=== PATIENT | male | born 1945 | race Caucasian/White ===

== ENCOUNTER 2023-03-20 11:43 | Day surgery (SDC) | payer OTHER ==
[2023-03-15 12:41] LABS: APTT 31 SECONDS (22-32); INR 1.3 INR
[2023-03-15 12:42] LABS: BASOPHILS % (AUTO) 0.5 % (0-1); EOSINOPHILS # (AUTO) 0.2 X10'3 (0-0.9); EOSINOPHILS % (AUTO) 3.3 % (0-6); LYMPHOCYTES # (AUTO) 1.4 X10'3 (1.1-4.8); LYMPHOCYTES % (AUTO) 31.1 % (21-51); MEAN CORPUSCULAR HEMOGLOBIN 36.5 PG (27.0-31.0); MEAN CORPUSCULAR HGB CONC 33.8 g/dL (33.0-36.5); MEAN CORPUSCULAR VOLUME 107.7 FL (78-98); MEAN PLATELET VOLUME 7.5 FL (7.4-10.4); MONOCYTES # (AUTO) 0.6 X10'3 (0-0.9); MONOCYTES % (AUTO) 13.7 % (2-12); NEUTROPHILS # (AUTO) 2.4 X10'3 (1.8-7.7); NEUTROPHILS % (AUTO) 51.4 % (42-75); PRE OP HEMATOCRIT 44.3 % (42.0-52.0); PRE OP PLATELET COUNT 155 X10'3 (140-440); PRE OP WHITE BLOOD COUNT 4.6 10'3 (4.8-10.8); RED BLOOD COUNT 4.11 X10'6 (4.70-6.10)
[2023-03-15 12:45] LABS: ALBUMIN 2.9 G/DL (3.4-5.0); ALKALINE PHOSPHATASE 126 IU/L (46-116); BLOOD UREA NITROGEN 6 MG/DL (7-18); BUN/CREATININE RATIO 7.7 (10.0-20.0); CALCIUM 8.6 MG/DL (8.5-10.1); CHLORIDE 105 MMOL/L (99-107); CREATININE 0.78 MG/DL (0.60-1.10); PRE OP ALT 30 U/L (30-65); PRE OP ANION GAP 10 (8-16); PRE OP AST 39 U/L (10-37); PRE OP GLUCOSE 113 MG/DL (70-104); PRE OP SODIUM 139 MMOL/L (135-145); TOTAL CARBON DIOXIDE 23.9 MMOL/L (24-32); eGFR > 90 ML/MIN
[2023-03-15 12:47] LABS: PRE OP POTASSIUM 3.2 MMOL/L (3.4-5.1)
[2023-03-15 12:50] LABS: ALBUMIN/GLOBULIN RATIO 0.5 (1.1-1.5); PRE OP BILIRUB, TOTAL 3.8 MG/DL (0.0-1.0); TOTAL PROTEIN 8.2 G/DL (6.4-8.2)
[~2023-03-20] VITALS: Ht 170.2 cm; Wt 61.0 kg
[2023-03-20] VITALS (10 sets, daily range): BP systolic 110–152; BP diastolic 62–78; PULSE 76–92; RESP 12–24; TEMP 97.6; O2SAT 95–98
[~2023-03-20 11:43] MED LIST: CHOL400T58 PO; LIVER AID PO; MULT-1085 PO; SUPER BETA PROSTATE PO; UBID100C16 PO; cefazolin 2gm/D5W 100mL 100 ML IV ONE; famotidine 20mg tablet PO ONE; ringers solution, lacted 1,000 ML IV SCH
[2023-03-20] MEDS ORDERED: LIDOcaine 1% W/epiNEPHrine 1:100,000 20ml vial ONE (13:29)
[2023-03-20] MEDS ORDERED: bacitracin 15gm ointment TP ONE (13:30)
[2023-03-20] MEDS ORDERED: midazolam 1 mg/ML 2ml injection ONE (13:44)
[2023-03-20] MEDS ORDERED: fentaNYL/PF 50MCG/1 ML 2ML syringe ONE (13:44)
[2023-03-20] MEDS ORDERED: BUPIVAcaine/PF 5 mg/ml 10ml ONE (14:31)
[2023-03-20] MEDS ORDERED: propofol inj 20 ML IV ONE ×2 (14:34)
[2023-03-20] MEDS ORDERED: morphine 2 MG/ML inj. syringe IV PRN (14:45)
[2023-03-20] MEDS ORDERED: ondansetron/PF 4mg/2ml inj IV PRN (14:45)
[2023-03-20] MEDS ORDERED: morphine 4 MG/ML inj SYRINge IV PRN (14:45)
[2023-03-20] MEDS ORDERED: meperidine/PF 25mg/ml syringe IV PRN ×3 (14:45)
[2023-03-20] MEDS ORDERED: ringers solution, lacted 1,000 ML IV SCH (14:45)
[2023-03-20] MEDS ORDERED: proCHLORperazine 10 MG/2 ml inj IV PRN (14:45)
--- NOTE | 2023-03-20 14:45 | NUR ---
PT ARRIVED TO [facility]IA [facility] ACCOMPANIED BY DR. HANKS- ANESTHESIA REPORT GIVEN, PT AWAKE, VSS, DENIES PAIN, RIGHT ING PATRICIAG-CDI.
--- NOTE | 2023-03-20 16:15 | NUR ---
PT DOING WELL, UP AND GETTING DRESSED, ABLE TO VOID WELL W/O DIFFICULTY, DRSG TO RIGHT GROIN-CDI, VSS, DENIES PAIN, PT REFUSING ANY PAIN MEDS AND NOT INTERESTED IN GETTING [facility] FROM [facility], GIVEN D/C INSTRUCTIONS-ALL QUESTIONS ANSWERED, TAKEN VIA W/C WITH ALL BELONGINGS TO VEHICLE FOR TRANSPORT HOME. PT OK TO BE OFF O2 ON TRANSPORT TO CAR-PORTABLE O2 IN VEHICLE FOR TRANSPORT HOME
== END 2023-03-20 16:15 | disposition home or self-care (01) ==
LOC: PAS 11:43 → EDUNIT# 13:30 → PAS 16:15
PROVIDERS: ATTEND Surgery
DX: K40.90 Unilateral inguinal hernia, without obstruction or gangrene, not specified as recurrent (principal); J44.9 Chronic obstructive pulmonary disease, unspecified; G47.30 Sleep apnea, unspecified; Z86.73 Personal history of transient ischemic attack (TIA), and cerebral infarction without residual deficits; Z87.891 Personal history of nicotine dependence; Z79.82 Long term (current) use of aspirin; Z79.899 Other long term (current) drug therapy; Z79.01 Long term (current) use of anticoagulants; Z88.8 Allergy status to other drugs, medicaments and biological substances; Z85.118 Personal history of other malignant neoplasm of bronchus and lung; Z85.6 Personal history of leukemia; Z72.89 Other problems related to lifestyle
CPT/HCPCS: 36415; 49505; 80053; 82948; 85025; 85610; 85730; C1781; J0690; J2250; J2704; J3010; J3490; J7030; J7120; Z7506; Z7508; Z7512; A4215; A4615; A4618; A6449; A7000

== ENCOUNTER 2023-06-27 12:18 | Emergency (ER) | payer OTHER, MEDICARE ==
[~2023-06-27] VITALS: Ht 170.2 cm; Wt 64.0 kg
[~2023-06-27 12:18] MED LIST changes: -cefazolin 2gm/D5W 100mL 100 ML IV ONE; -famotidine 20mg tablet PO ONE; -ringers solution, lacted 1,000 ML IV SCH
[2023-06-27 12:40] LABS: BASOPHILS % (AUTO) 0.1 % (0-1); EOSINOPHILS % (AUTO) 0.1 % (0-6); HEMATOCRIT 46.1 % (42.0-52.0); HEMOGLOBIN 15.9 g/dl (14.0-17.9); LYMPHOCYTES # (AUTO) 0.4 X10'3 (1.1-4.8); LYMPHOCYTES % (AUTO) 5.6 % (21-51); MEAN CORPUSCULAR HEMOGLOBIN 37.2 PG (27.0-31.0); MEAN CORPUSCULAR HGB CONC 34.5 g/dL (33.0-36.5); MEAN PLATELET VOLUME 7.2 FL (7.4-10.4); MONOCYTES # (AUTO) 0.9 X10'3 (0-0.9); MONOCYTES % (AUTO) 11.7 % (2-12); NEUTROPHILS # (AUTO) 6.5 X10'3 (1.8-7.7); NEUTROPHILS % (AUTO) 82.5 % (42-75); PLATELET COUNT 142 X10'3 (140-440); RED BLOOD COUNT 4.27 X10'6 (4.70-6.10); RED CELL DISTRIBUTION WIDTH 15.8 % (11.5-14.5); WHITE BLOOD COUNT 7.9 X10'3 (4.5-11.0)
[2023-06-27 13:04] LABS: ALANINE AMINOTRANSFERASE 22 U/L (12-78); ALBUMIN 3.1 G/DL (3.4-5.0); ALKALINE PHOSPHATASE 93 IU/L (46-116); ANION GAP 12 (8-16); ASPARTATE AMINO TRANSFERASE 34 U/L (10-37); BLOOD UREA NITROGEN 5 MG/DL (7-18); BUN/CREATININE RATIO 7.7 (10.0-20.0); CALCIUM 8.4 MG/DL (8.5-10.1); CHLORIDE 99 MMOL/L (99-107); CREATININE 0.65 MG/DL (0.60-1.10); GLUCOSE 146 MG/DL (70-104); POTASSIUM 3.4 MMOL/L (3.5-5.1); SODIUM 133 MMOL/L (135-145); TOTAL CARBON DIOXIDE 22.1 MMOL/L (24-32); eCRCL 86 ML/MIN; eGFR > 90 ML/MIN
[2023-06-27 13:11] LABS: PRO BRAIN NATRIURETIC PEPTIDE 287 PG/ML (0-450)
[2023-06-27 13:14] LABS: ALBUMIN/GLOBULIN RATIO 0.6 (1.1-1.5); TOTAL PROTEIN 8.3 G/DL (6.4-8.2)
[2023-06-27 21:55] VITALS: BP 150/75; PULSE 89; RESP 16; TEMP 98.5; O2SAT 94
== END 2023-06-27 21:58 | disposition left against medical advice (07) ==
LOC: ER 12:19
DX: R07.89 Other chest pain (principal); R06.02 Shortness of breath; R11.0 Nausea; J44.9 Chronic obstructive pulmonary disease, unspecified; I25.10 Atherosclerotic heart disease of native coronary artery without angina pectoris; Z87.891 Personal history of nicotine dependence; Z72.89 Other problems related to lifestyle; Z85.110 Personal history of malignant carcinoid tumor of bronchus and lung; Z79.899 Other long term (current) drug therapy
CPT/HCPCS: 36415; 71045; 80053; 83880; 84484; 85025; 93005; 99285